=== PATIENT | female | born 1960 | race Caucasian/White ===

== ENCOUNTER → 2016-06-23 | Outpatient (CLI) | payer OTHER ==
[~2016-06-23] MED LIST: ADVAIR HFA120 INHALA IH; BENEFIBER98 GM PO; CIPRO500 MG PO; CIPROFLOXACIN500 M1 PO; COLACE100 MG PO; DELTASONE20 M1 PO; FLAGYL500 MG PO; FOLIC ACID; FOLIC ACID1 MG PO; Folvite PO; HUMIRA10 MG/0.2 SC; MELOXICAM7.5 MG PO; METHOTREXATE; METHOTREXATE2.5 MG PO; METRONIDAZOLE500 MG PO; MIRALAX255 GM PO; PANTOPRAZOLE SO40 MG PO; PERCOCET 5/31 TABLET PO; PREDNISONE20 MG PO; PROAIR HFA8.5 GM IH; PROMETHAZINE HC25 M1 PO; REGLAN5 MG PO; SIMPONI50 MG/0.5 SC; ZOFRAN4 MG PO; ZOLOFT50 MG PO; Zoloft PO; [UNRECOGNIZED DRUG - OTHER] IM
== END | disposition home or self-care (01) ==
LOC: RAD 16:19
DX: K57.90 Diverticulosis of intestine, part unspecified, without perforation or abscess without bleeding (principal); R10.9 Unspecified abdominal pain; R55 Syncope and collapse
CPT/HCPCS: 74177

== ENCOUNTER 2016-10-19 14:30 | Emergency (ER) | payer OTHER ==
[~2016-10-19] VITALS: Ht 167.6 cm; Wt 112.7 kg
[2016-10-19 15:15] LABS: EOSINOPHIL (%) 2.1 % (0-5); EOSINOPHIL COUNT 0.1 K/uL (0-0.3); HEMATOCRIT 43.1 % (36.0-46.0); IMMATURE GRANULOCYTE (%) 0.2 % (0.0-0.7); INSTRUMENT ABS NEUTROPHIL CT 4.1 K/uL; LYMPHOCYTE COUNT 1.4 K/uL (1.0-2.8); MCH 27.7 PG (29.0-34.0); MCHC 32.5 G/DL (30.0-36.0); MCV 85.2 FL (83-99); MEAN PLAT.VOLUME 10.4 uM^3 (9.5-12.4); MONOCYTE (%) 7.7 % (3-12); MONOCYTE COUNT 0.5 K/uL (0-0.8); NEUTROPHIL (%) 66.5 % (45-76); NEUTROPHIL COUNT 4.1 K/uL (1.8-6.4); PLATELET COUNT 221 K/uL (156-360); RBC DIS.WIDTH-CV 14.3 % (11.8-14.6); RBC DIS.WIDTH-SD 44.1 % (39-53); RED BLOOD COUNT 5.06 M/uL (3.80-5.20); WHITE BLOOD COUNT 6.1 K/uL (4.1-10.2)
[2016-10-19 15:21] LABS: PROTHROMBIN TIME 11.4 SEC (10.2-12.9)
[2016-10-19 15:23] LABS: CHLORIDE 108 mEq/L (99-109); POTASSIUM 4.1 mEq/L (3.7-5.4); PTT 35.2 SEC (25-37); SODIUM 141 mEq/L (136-147)
[2016-10-19 15:24] LABS: GLUCOSE 99 mg/dL (70-99)
[2016-10-19 15:26] LABS: ANION GAP 9 MEQ/L (2-14)
[2016-10-19 15:28] LABS: GFR ESTIMATE (CALCULATED) > 59 mL/min/
[2016-10-19 15:29] LABS: UREA NITROGEN (BUN) 12 mg/dL (9-23)
[2016-10-19 15:35] LABS: TROP-I INTERPRETATION NEGATIVE; TROPONIN-I < 0.01 ng/mL (0.0-0.30)
[2016-10-19 18:49] LABS: TROP-I INTERPRETATION NEGATIVE; TROPONIN-I < 0.01 ng/mL (0.0-0.30)
[2016-10-19] MEDS ORDERED: IMITREX25 MG PO (19:05)
[2016-10-19] MEDS ORDERED: REGLAN10 MG PO (19:05)
[2016-10-19 19:16] VITALS: BP 107/63
== END 2016-10-19 19:17 | disposition home or self-care (01) ==
LOC: EME 14:30
PROVIDERS: Emergency Medicine
DX: R07.9 Chest pain, unspecified (principal); G43.909 Migraine, unspecified, not intractable, without status migrainosus; J45.909 Unspecified asthma, uncomplicated; F32.9 Major depressive disorder, single episode, unspecified; F41.9 Anxiety disorder, unspecified; Z88.6 Allergy status to analgesic agent; Z88.0 Allergy status to penicillin; Z87.891 Personal history of nicotine dependence
CPT/HCPCS: 71010; 76705; 80048; 84484; 85025; 85379; 85610; 85730; 93005; 99281; 99285; J2765; J3010; J3030

== ENCOUNTER 2017-06-16 01:59 | Inpatient (IN) | payer OTHER ==
[~2017-06-16] VITALS: Ht 167.6 cm; Wt 100.0 kg
[~2017-06-16 01:59] MED LIST changes: +IMITREX25 MG PO; +REGLAN10 MG PO
[2017-06-16 02:48] LABS: HEMATOCRIT 42.5 % (36.0-46.0); HEMOGLOBIN 13.7 G/DL (11.9-15.5); MCH 28.1 PG (29.0-34.0); MCHC 32.2 G/DL (30.0-36.0); MCV 87.3 FL (83-99); PLATELET COUNT 200 K/uL (156-360); RBC DIS.WIDTH-CV 14.4 % (11.8-14.6); RBC DIS.WIDTH-SD 46.1 % (39-53); RED BLOOD COUNT 4.87 M/uL (3.80-5.20); WHITE BLOOD COUNT 8.9 K/uL (4.1-10.2)
[2017-06-16 03:34] LABS: ALBUMIN 3.7 g/dL (3.2-4.8); CHLORIDE 109 mEq/L (99-109); POTASSIUM 4.6 mEq/L (3.7-5.4)
[2017-06-16 03:35] LABS: SODIUM 139 mEq/L (136-147)
[2017-06-16 03:37] LABS: GLUCOSE 143 mg/dL (70-99); TOTAL PROTEIN 7.2 g/dL (6.4-8.3)
[2017-06-16 03:39] LABS: TOTAL BILIRUBIN 0.5 mg/dL (0.0-1.0)
[2017-06-16 03:40] LABS: ALKALINE PHOSPHATASE 76 IU/L (3-129); CREATININE 0.8 mg/dL (0.6-1.3); GFR ESTIMATE (CALCULATED) > 59 mL/min/
[2017-06-16 03:42] LABS: AST (GOT) 21 IU/L (2-34); UREA NITROGEN (BUN) 17 mg/dL (9-23)
[2017-06-16 03:43] LABS: ALT (GPT) 17 IU/L (3-49)
[2017-06-16 03:44] LABS: LIPASE 24 U/L (1.0-51.0)
[2017-06-16 04:04] LABS: APPEARANCE CLEAR ((CLEAR)); BILIRUBIN NEGATIVE; BLOOD NEGATIVE; COLOR YELLOW ((YELLOW)); GLUCOSE (STRIP) NEGATIVE; KETONES 5; LEUKOCYTES NEGATIVE; NITRITE NEGATIVE; PROTEIN (STRIP) NEGATIVE; SPECIFIC GRAVITY 1.028 (1.000-1.030); UCUL ADDED? NO; UROBILINOGEN 0.2 MG/DL (0.2-1.0)
[2017-06-16 12:06] VITALS: BP 100/54
[2017-06-16 16:31] VITALS: BP 118/62
[2017-06-16 20:38] VITALS: BP 97/51
[2017-06-17 00:16] VITALS: BP 111/54
[2017-06-17 04:31] VITALS: BP 128/57
[2017-06-17 07:19] LABS: BASOPHIL (%) 0.1 % (0-1); EOSINOPHIL COUNT 0.1 K/uL (0-0.3); HEMATOCRIT 44.6 % (36.0-46.0); IMMATURE GRANULOCYTE (%) 0.1 % (0.0-0.7); LYMPHOCYTE (%) 16.9 % (15-42); LYMPHOCYTE COUNT 1.2 K/uL (1.0-2.8); MCH 27.4 PG (29.0-34.0); MCHC 31.4 G/DL (30.0-36.0); MCV 87.3 FL (83-99); MONOCYTE (%) 6.4 % (3-12); MONOCYTE COUNT 0.4 K/uL (0-0.8); NEUTROPHIL (%) 74.5 % (45-76); NEUTROPHIL COUNT 5.1 K/uL (1.8-6.4); PLATELET COUNT 200 K/uL (156-360); RBC DIS.WIDTH-CV 14.5 % (11.8-14.6); RBC DIS.WIDTH-SD 46.6 % (39-53); RED BLOOD COUNT 5.11 M/uL (3.80-5.20); WHITE BLOOD COUNT 6.9 K/uL (4.1-10.2)
[2017-06-17 08:23] VITALS: BP 129/65
[2017-06-17 09:00] LABS: ALBUMIN 3.7 G/DL (3.2-4.8); ALKALINE PHOSPHATASE 67 IU/L (3-129); ALT (GPT) 11 IU/L (3-49); AST (GOT) 11 IU/L (2-34); CREATININE 0.9 MG/DL (0.6-1.3); GFR ESTIMATE (CALCULATED) > 59 mL/min/; TOTAL BILIRUBIN 0.3 MG/DL (0.0-1.0); TOTAL PROTEIN 6.3 G/DL (6.4-8.3); UREA NITROGEN (BUN) 12 mg/dL (9-23)
[2017-06-17 09:01] LABS: GLUCOSE 102 mg/dL (70-99)
[2017-06-17 09:21] LABS: GASTRIC OCCULT BLD. POSITIVE
[2017-06-17 09:37] LABS: CHLORIDE 105 MEQ/L (99-109); POTASSIUM 3.6 MEQ/L (3.7-5.4); SODIUM 148 MEQ/L (136-147)
[2017-06-17 14:58] VITALS: BP 132/60
[2017-06-17 21:14] LABS: HEMATOCRIT 41.6 % (36.0-46.0); HEMOGLOBIN 13.1 G/DL (11.9-15.5); MCV 89.3 FL (83-99)
[2017-06-17 21:47] LABS: CHLORIDE 109 MEQ/L (99-109); CREATININE 0.8 MG/DL (0.6-1.3); GFR ESTIMATE (CALCULATED) > 59 mL/min/; GLUCOSE 94 mg/dL (70-99); MAGNESIUM 1.7 mg/dl (1.3-2.7); POTASSIUM 3.4 MEQ/L (3.7-5.4); SODIUM 147 MEQ/L (136-147); UREA NITROGEN (BUN) 11 mg/dL (9-23)
[2017-06-18 04:08] VITALS: BP 114/57
[2017-06-18 05:51] LABS: HEMOGLOBIN 12.8 G/DL (11.9-15.5); MCHC 30.5 G/DL (30.0-36.0); MCV 88.6 FL (83-99); PLATELET COUNT 166 K/uL (156-360); RBC DIS.WIDTH-CV 14.5 % (11.8-14.6); RBC DIS.WIDTH-SD 47.4 % (39-53); RED BLOOD COUNT 4.74 M/uL (3.80-5.20); WHITE BLOOD COUNT 6.3 K/uL (4.1-10.2)
[2017-06-18 06:11] LABS: ALBUMIN 3.3 G/DL (3.2-4.8); ALKALINE PHOSPHATASE 59 IU/L (3-129); ALT (GPT) 9 IU/L (3-49); AST (GOT) 12 IU/L (2-34); CHLORIDE 109 MEQ/L (99-109); CREATININE 0.6 MG/DL (0.6-1.3); GFR ESTIMATE (CALCULATED) > 59 mL/min/; GLUCOSE 112 mg/dL (70-99); MAGNESIUM 1.8 mg/dl (1.3-2.7); SODIUM 148 MEQ/L (136-147); TOTAL BILIRUBIN 0.3 MG/DL (0.0-1.0); TOTAL PROTEIN 5.8 G/DL (6.4-8.3); UREA NITROGEN (BUN) 11 mg/dL (9-23)
[2017-06-18 06:13] LABS: POTASSIUM 4.1 MEQ/L (3.7-5.4)
[2017-06-18 08:00] VITALS: BP 127/73
[2017-06-18 16:13] VITALS: BP 118/60
[2017-06-18 19:58] LABS: HEMATOCRIT 41.6 % (36.0-46.0); HEMOGLOBIN 12.9 G/DL (11.9-15.5); MCV 87.8 FL (83-99)
[2017-06-18 20:22] LABS: CHLORIDE 106 MEQ/L (99-109); CREATININE 0.7 MG/DL (0.6-1.3); GFR ESTIMATE (CALCULATED) > 59 mL/min/; GLUCOSE 106 mg/dL (70-99); MAGNESIUM 1.7 mg/dl (1.3-2.7); POTASSIUM 4.2 MEQ/L (3.7-5.4); SODIUM 142 MEQ/L (136-147); UREA NITROGEN (BUN) 8 mg/dL (9-23)
[2017-06-18 23:59] VITALS: BP 99/55
[2017-06-19 05:51] LABS: HEMATOCRIT 41.2 % (36.0-46.0); HEMOGLOBIN 12.6 G/DL (11.9-15.5); MCH 27.2 PG (29.0-34.0); MCHC 30.6 G/DL (30.0-36.0); MCV 88.8 FL (83-99); PLATELET COUNT 175 K/uL (156-360); RBC DIS.WIDTH-CV 14.4 % (11.8-14.6); RBC DIS.WIDTH-SD 46.7 % (39-53); RED BLOOD COUNT 4.64 M/uL (3.80-5.20); WHITE BLOOD COUNT 4.7 K/uL (4.1-10.2)
[2017-06-19 06:35] LABS: ALBUMIN 3.4 G/DL (3.2-4.8); ALKALINE PHOSPHATASE 56 IU/L (3-129); ALT (GPT) 11 IU/L (3-49); AST (GOT) 13 IU/L (2-34); CHLORIDE 107 MEQ/L (99-109); CREATININE 0.7 MG/DL (0.6-1.3); GFR ESTIMATE (CALCULATED) > 59 mL/min/; GLUCOSE 108 mg/dL (70-99); MAGNESIUM 1.7 mg/dl (1.3-2.7); POTASSIUM 4.6 MEQ/L (3.7-5.4); SODIUM 142 MEQ/L (136-147); TOTAL PROTEIN 6.1 G/DL (6.4-8.3); UREA NITROGEN (BUN) 9 mg/dL (9-23)
[2017-06-19 06:47] LABS: TOTAL BILIRUBIN 0.5 MG/DL (0.0-1.0)
[2017-06-19 08:12] VITALS: BP 128/68
[2017-06-19 17:00] VITALS: BP 127/57
[2017-06-19 19:56] VITALS: BP 127/60
[2017-06-19 23:45] VITALS: BP 120/58
[2017-06-20 05:34] LABS: HEMATOCRIT 41.5 % (36.0-46.0); HEMOGLOBIN 13.1 G/DL (11.9-15.5); MCH 27.6 PG (29.0-34.0); MCHC 31.6 G/DL (30.0-36.0); MCV 87.6 FL (83-99); PLATELET COUNT 166 K/uL (156-360); RBC DIS.WIDTH-CV 14.1 % (11.8-14.6); RBC DIS.WIDTH-SD 45.3 % (39-53); RED BLOOD COUNT 4.74 M/uL (3.80-5.20); WHITE BLOOD COUNT 4.3 K/uL (4.1-10.2)
[2017-06-20 06:00] LABS: ALBUMIN 3.4 G/DL (3.2-4.8); ALKALINE PHOSPHATASE 55 IU/L (3-129); ALT (GPT) 12 IU/L (3-49); AST (GOT) 12 IU/L (2-34); CHLORIDE 108 MEQ/L (99-109); CREATININE 0.6 MG/DL (0.6-1.3); GFR ESTIMATE (CALCULATED) > 59 mL/min/; GLUCOSE 105 mg/dL (70-99); MAGNESIUM 1.6 mg/dl (1.3-2.7); POTASSIUM 4.4 MEQ/L (3.7-5.4); SODIUM 141 MEQ/L (136-147); TOTAL BILIRUBIN 0.5 MG/DL (0.0-1.0); TOTAL PROTEIN 6.1 G/DL (6.4-8.3); UREA NITROGEN (BUN) 8 mg/dL (9-23)
[2017-06-20 08:00] VITALS: BP 110/57
[2017-06-20 12:14] VITALS: BP 130/63
[2017-06-20 16:16] VITALS: BP 104/67
[2017-06-20 19:51] VITALS: BP 117/73
[2017-06-20 20:58] VITALS: BP 92/21
[2017-06-20 23:48] VITALS: BP 99/55
[2017-06-21 05:25] LABS: HEMATOCRIT 38.8 % (36.0-46.0); HEMOGLOBIN 12.4 G/DL (11.9-15.5); MCH 27.7 PG (29.0-34.0); MCV 86.6 FL (83-99); PLATELET COUNT 179 K/uL (156-360); RBC DIS.WIDTH-CV 14.2 % (11.8-14.6); RED BLOOD COUNT 4.48 M/uL (3.80-5.20); WHITE BLOOD COUNT 4.3 K/uL (4.1-10.2)
[2017-06-21 05:48] LABS: ALBUMIN 3.2 G/DL (3.2-4.8); ALKALINE PHOSPHATASE 51 IU/L (3-129); ALT (GPT) 12 IU/L (3-49); AST (GOT) 14 IU/L (2-34); CHLORIDE 107 MEQ/L (99-109); CREATININE 0.7 MG/DL (0.6-1.3); GFR ESTIMATE (CALCULATED) > 59 mL/min/; GLUCOSE 99 mg/dL (70-99); MAGNESIUM 1.7 mg/dl (1.3-2.7); POTASSIUM 4.2 MEQ/L (3.7-5.4); SODIUM 141 MEQ/L (136-147); TOTAL BILIRUBIN 0.5 MG/DL (0.0-1.0); TOTAL PROTEIN 6.2 G/DL (6.4-8.3); UREA NITROGEN (BUN) 8 mg/dL (9-23)
[2017-06-21 07:38] VITALS: BP 118/62
== END 2017-06-21 12:58 | disposition home or self-care (01) | DRG 390 ==
LOC: EME → EDBD 01:59 → 3EAST 05:06 → EDOF 05:06 → ENRESERV 05:11 → EDOF 06:56 → ENRESERV 10:01 → 3EAST 11:01
PROVIDERS: Emergency Medicine; Internal Medicine; Physician Assistant
DX: K56.51 Intestinal adhesions [bands], with partial obstruction (principal); G47.33 Obstructive sleep apnea (adult) (pediatric); R09.02 Hypoxemia; F32.9 Major depressive disorder, single episode, unspecified; E87.6 Hypokalemia; F17.200 Nicotine dependence, unspecified, uncomplicated; J45.909 Unspecified asthma, uncomplicated; M06.9 Rheumatoid arthritis, unspecified; E66.9 Obesity, unspecified; Z68.35 Body mass index [BMI] 35.0-35.9, adult; Z85.41 Personal history of malignant neoplasm of cervix uteri; Z90.710 Acquired absence of both cervix and uterus
CPT/HCPCS: 71045; 74018; 74019; 74177; 80048 91; 80053; 81003; 82271; 82330; 83605; 83690; 83735; 85014; 85018; 85025; 85027; 94799; 99281; 99285; C9113; J1644; J1885; J2270; J2405; J3010; J7030